=== PATIENT | male | born 1960 | race Caucasian/White ===

== ENCOUNTER 2019-01-11 13:08 | Outpatient (CLI) | payer MEDICARE, MEDICAID ==
--- NOTE | 2019-01-13 15:54 | ULT ---
LOWER EXTREMITY ARTERIAL EVALUATION USING DOPPLER WAVEFORM ANALYSIS AND SEGMENTAL LIMB PRESSURES: 01/11/10 Waveforms in the lower extremities are for the most part normal with an ankle-arm index of 1.26 on th e right and 1.01 on the left. Normal toe-brachial index bilaterally. This study demonstrates mild peripheral vascular disease in the left leg but would not be consistent with a history of unable to walk.
== END 2019-01-11 13:09 | disposition home or self-care (01) ==
LOC: ULT 13:08
PROVIDERS: ATTEND Family Medicine
DX: I73.9 Peripheral vascular disease, unspecified (principal)
CPT/HCPCS: 36415; 83036; 93922

== ENCOUNTER 2019-03-15 09:48 | Outpatient (CLI) | payer MEDICARE, MEDICAID ==
--- NOTE | 2019-03-15 11:30 | ULT ---
ULTRASOUND RETROPERITONEUM COMPLETE: (RENAL) DATE: 03/15/2019 HISTORY: 58-year-old male with chronic cystitis and hematuria. FINDINGS: Right kidney measures 10.5 x 5 x 5.5 cm. No hydronephrosis. No moderate sized or large solid or cystic renal lesion identified. Patient just voided prior to ultrasound. Bladder volume is 45 mL. Left kidney not visualized. IMPRESSION: 1) left kidney not visualized. 2) no hydronephrosis of right kidney. 3) patient voided just prior to exam.
== END 2019-03-15 09:49 | disposition home or self-care (01) ==
LOC: ULT 09:48
PROVIDERS: ATTEND Family Medicine
DX: N30.21 Other chronic cystitis with hematuria (principal)
CPT/HCPCS: 76770

== ENCOUNTER 2019-04-27 10:39 | Outpatient (CLI) | payer MEDICARE, MEDICAID ==
[2019-04-27 11:18] LABS: Estimated GFR-MDRD - POC Greater than 90
[2019-04-27] MEDS ORDERED: Iopamidol 370 76% 100 ML VIAL ONE (13:56)
--- NOTE | 2019-04-27 14:54 | CT ---
CT ABDOMEN AND PELVIS WITH AND WITHOUT IV CONTRAST: 04/27/19 COMPARISON: None. HISTORY: Gross hematuria. FINDINGS: There are multiple nonobstructing left renal calculi seen. Largest calculus in the mid portion left kidney measures 7 mm x 3 mm. There are a couple of nonobstructing renal calculi in the right kidney m easuring approximately 2 mm. No ureteral calculus is seen bilaterally, and there is no evidence of hy dronephrosis. Subcentimeter too small to characterize hypodense lesions are seen in each kidney, more numerous on t he left. No enhancing renal mass is identified. Delayed images demonstrate no definitive persistent d elay effect within either renal collecting system or within the segmentally opacified bilateral urete rs. There is mild atelectasis at each lung base. The liver demonstrates diminished attenuation related to diffuse fatty infiltration. Multiple gallbladder calculi are seen. The spleen, pancreas, and right adrenal gland demonstrate a normal CT appearance. There is a fat dens ity lesion involving the left adrenal gland measuring 3.2 cm compatible with a myelolipoma. The urinary bladder is incompletely distended but grossly normal in appearance. The prostate gland is heterogeneous in appearance with prostate calcification seen. The prostate gland is mildly enlarged in transverse dimensions measuring 5.1 cm. Minimal vascular calcifications are seen in the abdominal aorta and iliac arteries. The abdominal aor ta is normal in caliber. Loops of small bowel are normal in caliber. Moderate amount of retained fecal material is seen in the rectum. The sigmoid colon is redundant. A few scattered colonic diverticula are seen. There is motio n in the right lower quadrant and the appendix is not visualized. However, there are no secondary sig ns to suggest appendicitis. Multilevel degenerative changes are seen in the visualized thoracic as well as lumbar spine. Degenera tive changes are also seen involving each sacroiliac joint, and there is bilateral hip osteoarthriti s. IMPRESSION: 1. Nonobstructing bilateral renal calculi. 2. Fatty infiltration of the liver. 3. Cholelithiasis. 4. Left adrenal myelolipoma. 5. Colonic diverticulosis. 6. Mild enlargement of the prostate gland. POS: CET
== END 2019-04-27 10:40 | disposition home or self-care (01) ==
LOC: CT 10:39
PROVIDERS: ATTEND Urology
DX: R31.0 Gross hematuria (principal); N20.0 Calculus of kidney; K76.0 Fatty (change of) liver, not elsewhere classified; K80.20 Calculus of gallbladder without cholecystitis without obstruction; K57.30 Diverticulosis of large intestine without perforation or abscess without bleeding; N40.0 Benign prostatic hyperplasia without lower urinary tract symptoms; D17.79 Benign lipomatous neoplasm of other sites
CPT/HCPCS: 74178; 82565; Q9967

== ENCOUNTER 2019-05-16 07:14 | Day surgery (SDC) | payer MEDICARE, MEDICAID ==
[2019-05-13 11:33] VITALS: BMI 38.0
[2019-05-16 08:15] LABS: #Basophils 0.1 thou/uL (0.0-0.2); #Eosinphils 0.2 thou/uL (0.0-0.7); #Lymphocytes 1.8 thou/uL (1.20-3.40); #Monocytes 0.7 thou/uL (0.11-0.59); #Neutrophils 6.2 thou/uL (1.40-6.50); %Basophils 0.8 % (0.0-1.0); %Eosinophils 2.4 % (0.0-10.0); %Lymphocytes 19.8 % (21.0-51.0); %Monocytes 8.2 % (0.0-10.0); %Neutrophils 68.9 % (42.0-75.0); Hemoglobin 15.1 g/dL (14.0-18.0); Mean Corpuscular HGB CONC 32.4 g/dL (32.0-36.0); Mean Corpuscular Volume 86.5 fL (78.0-98.0); Mean Platelet Volume 7.8 fL (7.4-10.4); Platelet Count 308 thou/uL (130-400); RBC Distribution Width 14.1 % (11.5-14.5); Red Blood Cell (RBC) Count 5.38 mill/uL (4.70-6.10)
[2019-05-16 08:27] LABS: PTT 32.6 SEC (22.9-36.1); Prothrombin Time 12.9 SEC (12.0-14.7)
[2019-05-16 08:35] LABS: Anion Gap 14 mmol/L (10-20); BUN (Urea Nitrogen) 15 mg/dL (8.4-25.7); Calc. Creatinine Clearance 158 mL/min (70-130); Calcium 9.1 mg/dL (7.8-10.44); Carbon Dioxide 22 mmol/L (22-29); Chloride 110 mmol/L (98-107); Estimated GFR-MDRD Greater than 90; Glucose 106 mg/dL (70-105); Potassium 4.3 mmol/L (3.5-5.1); Sodium 142 mmol/L (136-145)
[2019-05-16] MEDS ORDERED: Iothalamate Meglumine 60% 50 ML VIAL FS ONE (08:50)
[2019-05-16] MEDS ORDERED: Fentanyl 100 MCG/2 ML VIAL ONE (09:00)
--- NOTE | 2019-05-16 10:51 | RAD ---
Retrograde pyelogram: 05/16/2019 COMPARISON: None HISTORY: Gross hematuria FINDINGS: 12 images from bilateral retrograde pyelogram provided. Provided imaging demonstrates no di screte filling defect within the within the opacified portions of the renal collecting system/ureter bilaterally. IMPRESSION: Grossly unremarkable bilateral retrograde pyelogram.
--- NOTE | 2019-05-16 12:13 | OP ---
DATE OF PROCEDURE: 05/16/2019 PREOPERATIVE DIAGNOSIS: Hematuria. POSTOPERATIVE DIAGNOSES: Hematuria and bladder tumors. PROCEDURES PERFORMED: Cysto, bilateral retrogrades, transurethral resection of bladder tumour, laser bladder tumors, and intravesical instillation of chemotherapeutic agent mitomycin-C 40 mg and 40 mL normal saline, and digital rectal exam. ANESTHESIA: General. ESTIMATED BLOOD LOSS: Less than 50 mL. FINDINGS: There is no evidence of stricture disease. There was moderate BPH. There was kind of a flat papillary-appearing tumor on the trigone around the left ureteral orifice and on the left posterior wall and some of it up around the bladder neck. We resected the tumors of this area that was around the left ureteral orifice and on the trigone and on the left posterior wall. Then, we used the holmium laser to basically destroy the mucosa of these other abnormal areas. Retrograde studies were done that did not show any persistent filling defects for obstruction or hydronephrosis and we did not resect the ureteral orifice, so we did not place the stent. Digital rectal exam revealed normal tone. No rectal lesions and prostate that was mild to moderately enlarged but it was smooth without nodularity. DESCRIPTION OF PROCEDURE: Obtained written and verbal consent from the patient's family, after receiving IV antibiotics, he was taken to the operating suite. He was placed in the supine position on the treatment table. PlexiPulses were placed on his lower extremities and turned on. He was given a general anesthetic and oral obturator intubation, placed in the dorsal lithotomy position. Cystoscopy was performed with a 22-Australian sheath. This was well lubricated and passed under direct vision through the male urethra, through the prostatic urethra and into the bladder. The bladder was filled and emptied number of times and exam of both the 30-degree and 70-degree lens with the findings above. We then went ahead and gently dilated with [place] sounds up to 28-Australian and then passed a 24-Australian resectoscope sheath with visual obturator using a 30-degree lens through the male urethra and into the urinary bladder. An CounterTack resectoscope with Gyrus generator and loop, a 30-degree lens and video camera and monitor were used. We resected the tumor and the abnormal mucosa around the left ureteral orifice, but did not resect the orifice. We then resected this same type of tissue that was along the trigone and then along the left posterior wall. We then cauterized all these areas and then used the holmium laser to destroy the other areas of abnormal mucosa that were adjacent to these. Before doing any resection, we did bilateral retrogrades and these were done with a 5-Australian Pollack catheter that was flushed with contrast. [employer] KUB was taken with the fluoroscopy unit and the right side was done by injecting about 12 mL of contrast slowly up the right ureteral orifice filling out the ureter and upper collecting system and then doing the same on the right and then taking drainage films. We also repeated the retrograde study on the left side after the procedure was completed to be sure that this ureter was draining well in which it was. At the end of the procedure, Rod catheter was placed. He was taken out of the dorsal lithotomy position. The urine was clear. He had 40 mg of mitomycin-C and 40 mL of normal saline passed per the catheter and the catheter plugged and it stayed plugged for 30 minutes and he was taken to the recovery room after he was awakened and extubated. Job ID: [id number]
[2019-05-16] MEDS ORDERED: ePHEDrine 50 MG/ML VIAL ONE (14:55)
[2019-05-16] MEDS ORDERED: Lidocaine 1% PF 5 ML VIAL ONE (14:55)
[2019-05-16] MEDS ORDERED: PHENYLEPHRINE-NS 100 MCG/ML 10 ML SYRINGE ONE (14:55)
[2019-05-16] MEDS ORDERED: PROPOFOL 200 MG/20 ML VIAL ONE (14:55)
--- NOTE | 2019-05-19 05:42 | PQF ---
[facility] POST DISCHARGE CLINICAL DOCUMENTATION IMPROVEMENT CLARIFICATION FORM l Todays Date: 05/19/19 l Patients Name YESENIA DAWKINS l l Admit Date 05/16/19 l Disch Date 05/16/19 [employer]ing Machine Operator Name Max Montgomery Email: Cell: [phone] To be completed by [employer] Operator: Present Clinical Indicators - Signs / Symptoms Results and Location in Medical Record [ ] Documentation of: [ ] [ ] Documentation of: [ ] [ ] Documentation of: [ ] [ ] Documentation of: [ ] [ ] Risks [ ] [ ] [ ] Treatment [ ] Bladder carcinoma Query for size of laser fulgurated bladder tumors. [ ] [ ] To be completed by Physician: ANNA BAEZ The documentation in this patients record requires clarification to ensure coding compliance and accuracy. Check the appropriate box and include in your discharge summary. [ ] [ ] [ ] [ ] Please check this box if this does not apply to this patient [ ] Unable to determine [ ] Other diagnosis: Review the following information and exercise your independent professional judgment in responding to the clarification. Based upon the clinical findings, risk factors, and treatment, please clarify if you are treating one of the above probable or suspected diagnoses. Physician Signature: Date Time MTDD
== END 2019-05-16 13:35 | disposition home or self-care (01) ==
LOC: SDC 07:14
PROVIDERS: ATTEND Urology
DX: C67.4 Malignant neoplasm of posterior wall of bladder (principal); C67.5 Malignant neoplasm of bladder neck; C67.6 Malignant neoplasm of ureteric orifice; N40.0 Benign prostatic hyperplasia without lower urinary tract symptoms; F32.9 Major depressive disorder, single episode, unspecified; I10 Essential (primary) hypertension; K21.9 Gastro-esophageal reflux disease without esophagitis; E11.9 Type 2 diabetes mellitus without complications; E66.9 Obesity, unspecified; Z68.38 Body mass index [BMI] 38.0-38.9, adult; Z79.82 Long term (current) use of aspirin; Z79.84 Long term (current) use of oral hypoglycemic drugs; Z79.899 Other long term (current) drug therapy
CPT/HCPCS: 74420; 80048; 85025; 85610; 85730; 88307; C1758; J9280; 36415; A4216; J0690; J2001; J2704; J3010; J3490

== ENCOUNTER 2019-08-29 05:50 | Day surgery (SDC) | payer MEDICARE, MEDICAID ==
[2019-08-26 15:32] VITALS: BMI 37.8
[2019-08-29] MEDS ORDERED: Iothalamate Meglumine 60% 50 ML VIAL FS ONE (06:47)
[2019-08-29] MEDS ORDERED: Lidocaine 2% Jelly 5 ML TUBE ONE (06:47)
[2019-08-29 06:58] LABS: #Basophils 0.1 thou/uL (0.0-0.2); #Eosinphils 0.3 thou/uL (0.0-0.7); #Lymphocytes 1.8 thou/uL (1.20-3.40); #Monocytes 0.7 thou/uL (0.11-0.59); #Neutrophils 5.4 thou/uL (1.40-6.50); %Basophils 0.8 % (0.0-1.0); %Eosinophils 3.1 % (0.0-10.0); %Lymphocytes 21.9 % (21.0-51.0); %Monocytes 8.2 % (0.0-10.0); Hemoglobin 14.9 g/dL (14.0-18.0); Mean Corpuscular HGB CONC 32.4 g/dL (32.0-36.0); Mean Corpuscular Hemoglobin 28.5 pg (27.0-31.0); Mean Corpuscular Volume 87.9 fL (78.0-98.0); Mean Platelet Volume 7.8 fL (7.4-10.4); Platelet Count 321 thou/uL (130-400); RBC Distribution Width 13.8 % (11.5-14.5); Red Blood Cell (RBC) Count 5.24 mill/uL (4.70-6.10); White Blood Cell (WBC) Count 8.2 thou/uL (4.8-10.8)
[2019-08-29] MEDS ORDERED: Fentanyl 100 MCG/2 ML VIAL ONE (07:00)
[2019-08-29 07:04] LABS: INR-International Normal Ratio 0.9; PTT 32.5 SEC (22.9-36.1); Prothrombin Time 12.4 SEC (12.0-14.7)
[2019-08-29 07:12] LABS: Anion Gap 15 mmol/L (10-20); BUN (Urea Nitrogen) 17 mg/dL (8.4-25.7); Calc. Creatinine Clearance 127 mL/min (70-130); Calcium 8.7 mg/dL (7.8-10.44); Carbon Dioxide 20 mmol/L (23-31); Chloride 110 mmol/L (98-107); Estimated GFR-MDRD 84; Glucose 129 mg/dL (80-115); Potassium 4.1 mmol/L (3.5-5.1); Sodium 141 mmol/L (136-145)
--- NOTE | 2019-08-29 09:33 | RAD ---
XR IVP Retrograde HISTORY: Hematuria. Renal calculi. COMPARISON: CT examination of 04/27/2019 and a retrograde study of 05/16/2019. FINDINGS: A series of images show contrast injection into both the right and left collecting systems. No filling defects are demonstrated. No obstruction. Respiratory motion is present on this exam. IMPRESSION: Grossly unremarkable bilateral retrograde pyelogram.
[2019-08-29] MEDS ORDERED: traMADol HCl 50 MG TAB ONE (11:01)
--- NOTE | 2019-08-29 14:12 | OP ---
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 POSTOPERATIVE DIAGNOSIS: Probable recurrent tumor. PROCEDURES PERFORMED: 1. Cystoscopy. 2. Bilateral retrograde. 3. Transurethral resection of bladder tumor. ANESTHETIC: General. ESTIMATED BLOOD LOSS: Probably 50 to maybe 70 mL. DRAINS PLACED: A 4.8 x 26 cm left double-J stent and a 20-Estonian Rod catheter. FINDINGS: He had a small area that appeared to probably be tumor just medial to the left ureteral orifice. He had some abnormal mucosa at prior resection site on the left wall. He had what appears to probably be papillary tumor just at the junction of the bladder neck in the anterior bladder wall abutting the prostate. This was probably about 2 cm in size and was difficult to see the resect of its location, but I felt like we got all of it removed. DESCRIPTION OF PROCEDURE: After obtaining written and verbal consent from his family and after receiving IV antibiotics, he was taken to the operating suite. He was placed in the supine position on the treatment table. PlexiPulses were placed on his lower extremities and turned on. He was given a general anesthetic and oral obturator intubation. He was placed in the dorsal lithotomy position and sterilely prepped and draped for cystoscopy. C-arm was brought in for imaging. Cystoscopy was performed with a 22-Estonian sheath. This was well lubricated and passed under direct vision through the male urethra into the bladder with aid of a 30-degree lens and video camera and monitor. The bladder was filled and emptied a number of times as this was examined both with the 30 and the 70-degree lens. Using the 30-degree lens, we brought in a 5-Estonian Pollack catheter, flushed with contrast, and did the retrograde study of the right and the left ureter and collecting system by injecting contrast 1st on the right side about 15 mL as we used fluoroscopic imaging to look at the entire ureter and upper collecting system. The same was done on the left. Both sides appeared to drain well. No persistent filling defects were noted. We then went ahead and removed the instruments gently, dilated with [place] sounds, and passed a 24-Estonian resectoscope sheath with visual obturator into the urinary bladder, removing the obturator. We placed the resectoscope with the Gyrus generator and Gyrus bladder loop and a 30-degree lens. We initially resected the tumor by the left ureteral orifice, sent off the area of abnormal mucosa and a prior resection site on the left wall, then lastly the tissue by the anterior bladder neck. We had to Ellik this area out. Once this was done, we obtained hemostasis with the electrocautery unit. We removed these instruments and replaced the 22-Estonian sheath with a 30-degree lens and used this to identify the left ureteral orifice because we had resected adjacent to it. I fed a guidewire up that side and then placed a stent up that side. I will leave that in for a few weeks to be sure he does not obstruct from the proximity of the resection. At this point, the instruments were removed. Rod catheter was placed with aid of a catheter guide, about 20 mL placed in the balloon. It was hand irrigated, it was clear. He was taken out of the dorsal lithotomy position. He was awakened and extubated and taken by stretcher to the recovery room. Job ID: [id number]
== END 2019-08-29 12:05 ==
LOC: SDC 05:50
PROVIDERS: ATTEND Urology
PROC: 0TBB8ZX Excision of Bladder, Via Natural or Artificial Opening Endoscopic, Diagnostic (ICD-10-PCS; principal; 2019-08-29)
PROC: 0T778DZ Dilation of Left Ureter with Intraluminal Device, Via Natural or Artificial Opening Endoscopic (ICD-10-PCS; 2019-08-29)
DX: C67.5 Malignant neoplasm of bladder neck (principal); N30.20 Other chronic cystitis without hematuria; Z79.82 Long term (current) use of aspirin; Z79.84 Long term (current) use of oral hypoglycemic drugs; Z79.899 Other long term (current) drug therapy
CPT/HCPCS: 52234; 52332; 74420; 80048; 85025; 85610; 85730; 88305; 88307; C1758; 36415; J0690; J3010

== ENCOUNTER 2019-10-03 06:08 | Day surgery (SDC) | payer MEDICARE, MEDICAID ==
[2019-10-03] MEDS ORDERED: Fentanyl 100 MCG/2 ML VIAL ONE (06:22)
[2019-10-03 06:49] LABS: #Eosinphils 0.4 thou/uL (0.0-0.7); #Lymphocytes 1.8 thou/uL (1.20-3.40); #Monocytes 0.6 thou/uL (0.11-0.59); %Basophils 0.5 % (0.0-1.0); %Eosinophils 5.4 % (0.0-10.0); %Lymphocytes 23.3 % (21.0-51.0); %Monocytes 7.4 % (0.0-10.0); %Neutrophils 63.4 % (42.0-75.0); Hemoglobin 14.7 g/dL (14.0-18.0); Mean Corpuscular HGB CONC 31.9 g/dL (32.0-36.0); Mean Corpuscular Hemoglobin 27.6 pg (27.0-31.0); Mean Corpuscular Volume 86.7 fL (78.0-98.0); Mean Platelet Volume 8.8 fL (7.4-10.4); Platelet Count 315 thou/uL (130-400); RBC Distribution Width 13.7 % (11.5-14.5); Red Blood Cell (RBC) Count 5.31 mill/uL (4.70-6.10); White Blood Cell (WBC) Count 7.8 thou/uL (4.8-10.8)
[2019-10-03 06:59] LABS: INR-International Normal Ratio 0.9; Prothrombin Time 12.3 SEC (12.0-14.7)
[2019-10-03 07:00] LABS: PTT 33.6 SEC (22.9-36.1)
[2019-10-03] MEDS ORDERED: Iothalamate Meglumine 60% 50 ML VIAL FS ONE (07:04)
[2019-10-03] MEDS ORDERED: cefTRIAXone\\ROCEPHIN 2 GM VIAL ONE (07:13)
[2019-10-03] MEDS ORDERED: Sodium Chloride 0.9% 100 ML ONE (07:13)
[2019-10-03 07:18] LABS: Anion Gap 14 mmol/L (10-20); BUN (Urea Nitrogen) 15 mg/dL (8.4-25.7); Calc. Creatinine Clearance 0 mL/min (70-130); Calcium 8.9 mg/dL (7.8-10.44); Carbon Dioxide 23 mmol/L (23-31); Chloride 109 mmol/L (98-107); Estimated GFR-MDRD 79; Glucose 113 mg/dL (80-115); Potassium 4.8 mmol/L (3.5-5.1); Sodium 141 mmol/L (136-145)
[2019-10-03] MEDS ORDERED: niCARdipine 25 MG/10 ML VIAL ONE (07:20)
--- NOTE | 2019-10-03 09:06 | RAD ---
RETROGRADE IVP: HISTORY: Stent placement. FINDINGS: Four intraprocedure images demonstrate a left ureteral stent. Retrograde opacification of the intrar enal and extrarenal collecting system does not demonstrate significant opacification. The last image does not demonstrate replacement of the stent. IMPRESSION: Intraprocedure fluoroscopy as above. POS: C
[2019-10-03] MEDS ORDERED: Ondansetron PF 4 MG/2 ML Vial ONE (10:27)
[2019-10-03] MEDS ORDERED: ePHEDrine/0.9% NaCl/PF SYRINGE 50 mg/10 ml ONE (10:27)
[2019-10-03] MEDS ORDERED: PROPOFOL 200 MG/20 ML VIAL ONE (10:27)
[2019-10-03] MEDS ORDERED: Lidocaine 1% PF 5 ML VIAL ONE (10:27)
[2019-10-03] MEDS ORDERED: PHENYLEPHRINE-NS 100 MCG/ML 10 ML SYRINGE ONE (10:27)
--- NOTE | 2019-10-03 14:40 | OP ---
DATE OF PROCEDURE: 10/03/2019 PREOPERATIVE DIAGNOSIS: Left ureteral stent and history of transitional cell carcinoma. POSTOPERATIVE DIAGNOSIS: Left ureteral stent and history of transitional cell carcinoma. PROCEDURES PERFORMED: Cysto, removal of left stent left retrograde, entrance through the resection of the tumor site on the anterior wall at the junction of the bladder neck. DESCRIPTION OF PROCEDURE: Obtained written and verbal consent from the patient's sister and after receiving IV antibiotics, he was taken to the operating suite. He was placed in the supine position on the treatment table. PlexiPulse's were placed on his lower extremities and turned on. He was given a general anesthetic and oral obturator intubation, placed in the dorsal lithotomy position and sterilely prepped and draped. Cystoscopy was performed with a 22-Libyan sheath. This was well lubricated and passed under direct vision through the male urethra into the urinary bladder with aid of a 30-degree lens and video camera and monitor. The bladder was filled and emptied number of times. The distal end of double-J stent was grasped. It was brought out through the urethral meatus and completely removed in its entirety. A 5-Libyan Pollack catheter was flushed with contrast and placed into the left ureteral orifice and contrast was injected about 15 mL in a retrograde manner. There was no evidence of filling defect or hydronephrosis or obstruction and the contrast all easily effluxed out the left ureter. We then went ahead and removed the instruments and passed under direct vision, a 24-Libyan resectoscope sheath with visual obturator through the male urethra into the bladder. Gyrus generator with a gyrus cutting loop and an Alves resectoscope and 30 degree lens and video camera and monitor were used. We had previously looked at the bladder with both the 30 and the 70-degree lens. We saw no other evidence of bladder tumors today, but because of a new finding of a bladder tumor on the anterior wall adjacent to the bladder neck, we resected this area, it was then cauterized for hemostasis. At this point, the Rod catheter was placed. Specimen was sent to pathology and the catheter was draining clear urine. He was taken out of dorsal lithotomy position, awakened, extubated, and taken by stretcher to the recovery room. Job ID: [id number]
--- NOTE | 2019-10-03 23:29 | EKG ---
Test Reason : PREOP Blood Pressure : / mmHG Vent. Rate : 067 BPM Atrial Rate : 067 BPM P-R Int : 192 ms QRS Dur : 094 ms QT Int : 432 ms P-R-T Axes : 016 -16 -17 degrees QTc Int : 456 ms Normal sinus rhythm Moderate voltage criteria for LVH, may be normal variant Borderline ECG When compared with ECG of 22-NOV-2016 07:12, Vent. rate has decreased BY 56 BPM QRS duration has increased Minimal criteria for Septal infarct are no longer Present ST no longer depressed in Anterior leads Confirmed by Bozena FUENTES ([id number]) on 10/03/2019 11:29:10 PM Referred By: LAKESHIA Confirmed By:Bozena FUENTES
--- NOTE | 2019-10-06 05:55 | PQF ---
[facility] POST DISCHARGE CLINICAL DOCUMENTATION IMPROVEMENT CLARIFICATION FORM l Todays Date: 10/06/19 l Patients Name YESENIA DAWKINS l l Admit Date 10/03/19 l Disch Date 10/03/19 Key Worker Name Max Montgomery Email: [email or web address] Cell: [phone] To be completed by Key Worker: Present Clinical Indicators - Signs / Symptoms Results and Location in Medical Record [ ] Documentation of: [ ] [ ] Documentation of: [ ] [ ] Documentation of: [ ] [ ] Documentation of: [ ] [ ] Risks [ ] [ ] [ ] Treatment [ ] Tumor of anterior bladder wall Query for size of resected bladder tumor. [ ] [ ] To be completed by Physician: ANNA BAEZ The documentation in this patients record requires clarification to ensure coding compliance and accuracy. Check the appropriate box and include in your discharge summary. [ ] [ ] [ ] [ ] Please check this box if this does not apply to this patient [ ] Unable to determine [ ] Other diagnosis: Review the following information and exercise your independent professional judgment in responding to the clarification. Based upon the clinical findings, risk factors, and treatment, please clarify if you are treating one of the above probable or suspected diagnoses. Physician Signature: Date Time MTDD
== END 2019-10-03 10:45 | disposition home or self-care (01) ==
LOC: SDC 06:08
PROVIDERS: ATTEND Urology
DX: N30.00 Acute cystitis without hematuria (principal); N30.20 Other chronic cystitis without hematuria; E11.9 Type 2 diabetes mellitus without complications; I10 Essential (primary) hypertension; Z85.51 Personal history of malignant neoplasm of bladder; Z79.84 Long term (current) use of oral hypoglycemic drugs; Z79.82 Long term (current) use of aspirin; Z79.899 Other long term (current) drug therapy; Z91.013 Allergy to seafood
CPT/HCPCS: 74420; 80048; 85025; 85610; 85730; 88307; 93005; C1758; 93010; J0696; J2001; J2405; J2704; J3010; J3490

== ENCOUNTER 2020-02-14 07:26 | Outpatient (CLI) | payer MEDICARE, MEDICAID ==
[2020-02-14] MEDS ORDERED: Iopamidol-370 76% 500 ML 1 ML ONE (09:13)
--- NOTE | 2020-02-14 14:03 | CT ---
CTA OF THE ABDOMEN AND PELVIS WITH BILATERAL LOWER EXREMITY RUNOFF: 02/14/20 INDICATION: History of peripheral vascular disease. COMPARISON: Prior CT of the abdomen and pelvis dated 04/27/19. TECHNIQUE: Multiple CTA images were obtained of the abdomen and pelvis with bilateral lower extremity runoff uti lizing IV contrast, 3D reformatted imaging, axial, coronal and sagittal reformatted imaging were cons tructed from the raw data. Motion artifact during the examination slightly limit image detail. FINDINGS: No focal hepatic lesion is evident. There is stable cholelithiasis. There is a stable left adrenal my elolipoma. There is bilateral nephrolithiasis without evidence of hydronephrosis. Spleen appears with in normal limits. No free fluid or enlarged lymph nodes are evident. The visualized pancreas is unrem arkable appearing. There is a moderate amount of retained stool within the colon. There is a normal appendix within the right lower quadrant. The prostate is enlarged measuring 5.2 cm. Small bowel is of normal caliber. Th ere is scattered degenerative and osteoarthritic change. No definite acute osseous abnormality is brijesh dent. There is mild atherosclerotic irregularity involving the abdominal aorta. The celiac, SMA, and renal arteries are patent. The LUIS ANTONIO is patent. Common iliacs are patent. External iliacs are patent. Right a nd left common femoral arteries are patent. The superficial femoral arteries are patent. The poplitea l arteries are patent. Trifurcations patent. There is three vessel runoff to the level of the ankle b ilaterally. IMPRESSION: 1. No hemodynamically significant stenosis demonstrated. 2. Cholelithiasis. 3. Bilateral nephrolithiasis. 4. Left adrenal myelolipoma. 5. Moderate amount of retained stool within colon. 6. Prostate enlargement. POS: HYACINTH
== END 2020-02-14 07:27 | disposition home or self-care (01) ==
LOC: BICCT 07:26
PROVIDERS: ATTEND Family Medicine
DX: I73.9 Peripheral vascular disease, unspecified (principal); K80.20 Calculus of gallbladder without cholecystitis without obstruction; N20.0 Calculus of kidney; K59.00 Constipation, unspecified; N40.0 Benign prostatic hyperplasia without lower urinary tract symptoms; D17.79 Benign lipomatous neoplasm of other sites
CPT/HCPCS: 75635; Q9967

== ENCOUNTER 2020-04-02 06:47 | Day surgery (SDC) | payer MEDICARE, MEDICAID ==
[2020-04-02] MEDS ORDERED: Levofloxacin 500 mg/D5W 100 ml Premix Bag ONE (07:54)
[2020-04-02] MEDS ORDERED: Fentanyl 100 MCG/2 ML VIAL ONE (08:59)
[2020-04-02] MEDS ORDERED: Iothalamate Meglumine 60% 50 ML VIAL FS ONE (09:44)
[2020-04-02] MEDS ORDERED: Ondansetron PF 4 MG/2 ML Vial ONE (09:53)
[2020-04-02] MEDS ORDERED: EPHEDRINE 25 MG/5 ML SYRINGE ONE (09:53)
[2020-04-02] MEDS ORDERED: PROPOFOL 200 MG/20 ML VIAL ONE (09:53)
[2020-04-02] MEDS ORDERED: Dexamethasone 20 MG/5 ML VIAL ONE (09:53)
[2020-04-02] MEDS ORDERED: Lidocaine 1% PF 5 ML VIAL ONE (09:53)
--- NOTE | 2020-04-02 10:56 | OP ---
DATE OF PROCEDURE: 04/02/2020 PREOPERATIVE DIAGNOSIS: History of bladder cancer. POSTOPERATIVE DIAGNOSIS: History of bladder cancer. PROCEDURES PERFORMED: Cystoscopy, bilateral retrogrades, and bladder biopsy. ANESTHESIA: General. ESTIMATED BLOOD LOSS: Minimal. DRAINS PLACED: None. FINDINGS: There was no evidence of stricture disease and a large prostate was noted. There was no evidence of recurrent bladder tumor along the course of the prostatic urethra or throughout the bladder. Retrograde studies were done bilaterally. There was no evidence of any persisting or significant filling defect, point of obstruction or abnormality. The left ureteral orifice had been resected because of his initial procedure, but this looked like it was healed and it certainly drained well on that side. DESCRIPTION OF PROCEDURE: After obtaining written and verbal consent from the patient and his family and after receiving IV antibiotics, he was taken to the operating suite. He was placed in a supine position on the treatment table. PlexiPulses were placed on his lower extremities and turned on. He was given a general anesthetic and oral obturator intubation. He was placed in the dorsal lithotomy position. He was sterilely prepped and draped. Cystoscopy was performed with a 22-Citizen [place] sheath. This was well lubricated, passed under direct vision through the male urethra and into the urinary bladder with aid of a 30-degree lens and a video camera and monitor. The bladder was filled and emptied a number of times and examined with both the 30- and the 70-degree lens. He was then centered under the fluoro unit and a fisher trawl net film was taken. A 5-Citizen [place] catheter was flushed with contrast. It was advanced into the left ureteral orifice 2 to 3 cm and contrast was injected in a retrograde manner. Images were taken as it filled and emptied. The right side was done in a similar manner. At this point, drainage films were to be done. We did bladder biopsies of the prior tumor site and then used a Bugbee to cauterize the sites. We repeated fluoroscopic exam and both ureters had drained well. The bladder was drained. The instruments were removed. He was taken out of the dorsal lithotomy position, awakened, extubated, and taken by stretcher to recovery room. Job ID: [id number]
--- NOTE | 2020-04-02 11:36 | RAD ---
Retrograde pyelogram 14 views 04/02/2020 HISTORY: 59-year-old male with bilateral nephrolithiasis. FINDINGS: Injection into bilateral distal ureters demonstrate no hydronephrosis. No filling defects in the uret ers or renal collecting systems. The bilateral mid-distal ureters through the levels of upper through mid sacrum have mild dilation, especially the left, but good drainage. There is no ureteral s tent. IMPRESSION: Negative
== END 2020-04-02 12:24 ==
LOC: SDC 06:47
PROVIDERS: ATTEND Urology
PROC: 0TBB8ZX Excision of Bladder, Via Natural or Artificial Opening Endoscopic, Diagnostic (ICD-10-PCS; principal; 2020-04-02)
PROC: BT14ZZZ Fluoroscopy of Kidneys, Ureters and Bladder (ICD-10-PCS; 2020-04-02)
DX: N30.00 Acute cystitis without hematuria (principal); N30.20 Other chronic cystitis without hematuria; N20.0 Calculus of kidney; E11.9 Type 2 diabetes mellitus without complications; J44.9 Chronic obstructive pulmonary disease, unspecified; I10 Essential (primary) hypertension; K21.9 Gastro-esophageal reflux disease without esophagitis; Z85.51 Personal history of malignant neoplasm of bladder; Z79.82 Long term (current) use of aspirin; Z79.84 Long term (current) use of oral hypoglycemic drugs; Z79.899 Other long term (current) drug therapy
CPT/HCPCS: 74420; 88305; J1100; J1956; J2405; J2704; J3010

== ENCOUNTER 2020-06-05 12:01 | Emergency (ER) | payer OTHER ==
[2020-06-05 12:45] LABS: #Basophils 0.1 thou/uL (0.0-0.2); #Eosinphils 0.3 thou/uL (0.0-0.7); #Monocytes 0.8 thou/uL (0.11-0.59); #Neutrophils 5.9 thou/uL (1.40-6.50); %Eosinophils 3.2 % (0.0-10.0); %Lymphocytes 22.3 % (21.0-51.0); %Monocytes 8.2 % (0.0-10.0); %Neutrophils 65.3 % (42.0-75.0); Mean Corpuscular HGB CONC 31.7 g/dL (32.0-36.0); Mean Corpuscular Hemoglobin 27.9 pg (27.0-31.0); Mean Corpuscular Volume 88.1 fL (78.0-98.0); Mean Platelet Volume 8.4 fL (7.4-10.4); Platelet Count 319 thou/uL (130-400); Red Blood Cell (RBC) Count 5.35 mill/uL (4.70-6.10); White Blood Cell (WBC) Count 9.1 thou/uL (4.8-10.8)
[2020-06-05 13:05] LABS: ALT (SGPT) 15 U/L (8-55); AST (SGOT) 16 U/L (5-34); Albumin 3.9 g/dL (3.4-4.8); Alcohol Less than 10 mg/dL (Less than 10); Alkaline Phosphatase 120 U/L (40-110); Anion Gap 17 mmol/L (10-20); BUN (Urea Nitrogen) 18 mg/dL (8.4-25.7); Bilirubin, Total 0.2 mg/dL (0.2-1.2); CK (CPK) 406 U/L (30-200); Calc. Creatinine Clearance 0 mL/min (70-130); Calcium 8.8 mg/dL (7.8-10.44); Carbon Dioxide 21 mmol/L (23-31); Chloride 109 mmol/L (98-107); Estimated GFR-MDRD Greater than 90; Globulin 2.8 g/dL (2.4-3.5); Glucose 105 mg/dL (80-115); Potassium 4.1 mmol/L (3.5-5.1); Protein, Total 6.7 g/dL (5.8-8.1); Sodium 143 mmol/L (136-145)
[2020-06-05 13:06] LABS: Acetaminophen Less than 6.0 mcg/mL (10.0-30.0); Alcohol Less than 10 mg/dL (Less than 10); Salicylate Less than 8.0 mg/dL (15.0-30.0)
[2020-06-05 13:42] LABS: Bacteria/HPF 3+ HPF (None Seen); Bilirubin Negative (Negative); Blood, Urine Negative (Negative); Clarity Clear (Clear); Glucose, Urine (Dipstick) Normal (Negative); Ketone, Urine Negative (Negative); Leukocyte 250 Leu/uL (Negative); Nitrite Negative (Negative); Protein, Urine (Dipstick) 10 mg/dL (Neg-Trace); RBC/HPF 0-3 HPF (0-3); Squamous Epithelial 0-3 HPF (0-3); Urobilinogen Normal mg/dL (Less than 2); WBC/HPF 21-50 HPF (0-3)
[2020-06-05 13:57] LABS: Amphetamine Not Detected (NotDetected); Barbiturates Screen Not Detected (NotDetected); Benzodiazepine Screen Not Detected (NotDetected); Cocaine Metabolite Screen Not Detected (NotDetected); Medtox Control Line Valid? VALID (VALID); Medtox Reader # READER 4; Methadone Not Detected (NotDetected); Methamphetamine Not Detected (NotDetected); Opiate Screen Not Detected (NotDetected); Oxycodone Screen Not Detected (NotDetected); Phencyclidine (PCP) Not Detected (NotDetected); THC/Cannabinoid Screen Not Detected (NotDetected); Tricyclic Screen Not Detected (NotDetected)
== END 2020-06-05 15:08 | disposition home or self-care (01) ==
LOC: ERS 12:01
DX: N39.0 Urinary tract infection, site not specified (principal); E78.5 Hyperlipidemia, unspecified; E78.00 Pure hypercholesterolemia, unspecified; I10 Essential (primary) hypertension; K21.9 Gastro-esophageal reflux disease without esophagitis; F32.9 Major depressive disorder, single episode, unspecified; F41.9 Anxiety disorder, unspecified; Z79.82 Long term (current) use of aspirin; Z79.84 Long term (current) use of oral hypoglycemic drugs; Z79.899 Other long term (current) drug therapy
CPT/HCPCS: 36415; 80053; 80306; 80307; 81003; 81015; 82550; 84443; 85025; 87077; 87086; 87186; 93005

== ENCOUNTER 2021-07-01 06:32 | Day surgery (SDC) | payer OTHER, MEDICARE, MEDICAID ==
[2021-06-28 11:12] VITALS: BMI 34.5
[2021-07-01] MEDS ORDERED: Fentanyl 100 MCG/2 ML VIAL ONE (06:46)
[2021-07-01] MEDS ORDERED: Levofloxacin 500 mg/D5W 100 ml Premix Bag ONE (07:21)
[2021-07-01] MEDS ORDERED: SUGAMMADEX SODIUM 200 MG/2 ML VIAL ONE (07:28)
[2021-07-01] MEDS ORDERED: Iothalamate Meglumine 60% 50 ML VIAL FS ONE (07:32)
[2021-07-01] MEDS ORDERED: PROPOFOL 200 MG/20 ML VIAL ONE (07:36)
[2021-07-01] MEDS ORDERED: Ondansetron PF 4 MG/2 ML Vial ONE (07:36)
[2021-07-01] MEDS ORDERED: Labetalol HCl 100 MG/20 ML VIAL ONE (07:36)
[2021-07-01] MEDS ORDERED: Dexamethasone 20 MG/5 ML VIAL ONE (07:36)
[2021-07-01] MEDS ORDERED: Rocuronium Bromide 10 MG/ML (10ML VIAL) ONE (07:36)
[2021-07-01] MEDS ORDERED: ePHEDrine 50 MG/ML VIAL ONE (07:36)
[2021-07-01] MEDS ORDERED: PHENYLEPHRINE-NS 100 MCG/ML 10 ML SYRINGE ONE (07:36)
[2021-07-01] MEDS ORDERED: Lidocaine 1% PF 5 ML VIAL ONE (07:36)
[2021-07-01] MEDS ORDERED: Ioversol 68 % 50 ML VIAL ONE (07:55)
[2021-07-01] MEDS ORDERED: HYDROcodone/Acetaminophen 5/325 mg Tablet ONE (10:29)
== END 2021-07-01 10:38 ==
LOC: SDC 06:32
PROVIDERS: ATTEND Urology
PROC: 0TBB8ZX Excision of Bladder, Via Natural or Artificial Opening Endoscopic, Diagnostic (ICD-10-PCS; principal; 2021-07-01)
DX: D30.3 Benign neoplasm of bladder (principal); N13.30 Unspecified hydronephrosis; I10 Essential (primary) hypertension; E78.5 Hyperlipidemia, unspecified; S06.9X9S Unspecified intracranial injury with loss of consciousness of unspecified duration, sequela; R41.89 Other symptoms and signs involving cognitive functions and awareness; G81.10 Spastic hemiplegia affecting unspecified side; R47.02 Dysphasia; R27.0 Ataxia, unspecified; E11.9 Type 2 diabetes mellitus without complications; K21.9 Gastro-esophageal reflux disease without esophagitis; Z66 Do not resuscitate; Z85.51 Personal history of malignant neoplasm of bladder; Z86.16 Personal history of COVID-19; Z87.440 Personal history of urinary (tract) infections; Z79.82 Long term (current) use of aspirin; Z79.84 Long term (current) use of oral hypoglycemic drugs; Z79.899 Other long term (current) drug therapy; Z91.013 Allergy to seafood; V89.2XXS Person injured in unspecified motor-vehicle accident, traffic, sequela
CPT/HCPCS: 74420; Q9961; 88305; J1100; J1956; J2405; J2704; J3010; J3490; Q9967

== ENCOUNTER 2022-03-27 13:01 | Outpatient (CLI) | payer MEDICARE, OTHER | END 2022-03-27 13:02 | disposition home or self-care (01) | LOC: RAD 13:01 | PROVIDERS: ATTEND Family Medicine | DX: M79.605 Pain in left leg (principal); R25.2 Cramp and spasm; M47.816 Spondylosis without myelopathy or radiculopathy, lumbar region; M25.78 Osteophyte, vertebrae; M48.16 Ankylosing hyperostosis [Forestier], lumbar region | CPT/HCPCS: 72100 ==

== ENCOUNTER 2025-04-23 08:59 | Inpatient (IN) | payer MEDICARE, MEDICAID ==
[2025-04-23 10:00] LABS: #Basophils 0.05 10x3/uL (0.0-0.2); #Eosinophils Less than 0.03 10x3/uL (0.0-0.7); #Monocytes 0.58 10x3/uL (0.11-0.59); #Neutrophils 14.06 10x3/uL (1.40-6.50); %Basophils 0.3 % (0.0-1.0); %Eosinophils 0.1 % (0.0-10.0); %Lymphocytes 5.7 % (21.0-51.0); %Monocytes 3.7 % (0.0-10.0); %Neutrophils 89.6 % (42.0-75.0); Hematocrit 45.3 % (42.0-52.0); Hemoglobin 14.1 g/dL (14.0-18.0); Mean Corpuscular Hemoglobin 25.9 pg (27.0-31.0); Mean Corpuscular Volume 83.1 fL (78.0-98.0); Platelet Count 403 10x3/uL (130-400); Red Blood Cell (RBC) Count 5.45 mill/uL (4.70-6.10); White Blood Cell (WBC) Count 15.68 10x3/uL (4.8-10.8)
[2025-04-23 10:10] LABS: ALT (SGPT) 13 U/L (Less than 45); AST (SGOT) 20 U/L (11-34); Albumin 3.8 g/dL (3.1-4.5); Alkaline Phosphatase 120 U/L (40-110); Anion Gap 18 mmol/L (10-20); BUN (Urea Nitrogen) 21 mg/dL (8.4-25.7); Bilirubin, Total 0.2 mg/dL (0.3-1.2); Calc. Creatinine Clearance 0 mL/min (70-130); Calcium 9.1 mg/dL (7.8-10.44); Carbon Dioxide 19 mmol/L (23-31); Chloride 109 mmol/L (98-107); Globulin 3.5 g/dL (2.4-3.5); Glucose 135 mg/dL (80-115); Lipase 34 U/L (8-78); Potassium 4.8 mmol/L (3.5-5.1); Sodium 141 mmol/L (136-145)
[2025-04-23 10:14] LABS: INR-International Normal Ratio 1.0; Prothrombin Time 13.4 sec (12.0-14.7)
[2025-04-23 10:15] LABS: PTT 34.0 sec (22.9-36.1)
[2025-04-23] MEDS ORDERED: Lidocaine 2% 6 ML (Jelly) SYR ONE (10:33)
[2025-04-23] MEDS ORDERED: cefTRIAXone (ROCEPHIN) 2 GM VIAL ONE (10:33)
[2025-04-23 11:18] LABS: Bacteria/HPF None Seen HPF (None Seen); CAUTI Indications for Culture Pelvic or flank pain; Glucose, Urine (Dipstick) Normal (Negative); Leukocyte Negative Leu/uL (Negative); Protein, Urine (Dipstick) Negative (Neg-Trace); RBC/HPF 0-3 HPF (0-3); Specific Gravity, Urine 1.014 (1.002-1.036); WBC/HPF 0-3 HPF (0-3)
[2025-04-23 11:20] LABS: Urine Culture Reflex No No
[2025-04-23] MEDS ORDERED: Iopamidol-370 76% 500 ML MDV (1 ML CHARGE) ONE (11:46)
[2025-04-23] MEDS ORDERED: VANCOMYCIN 2 GRAM/400 ML BAG ONE (12:28)
[2025-04-23] MEDS ORDERED: metroNIDAZOLE 500 MG (100 mL) BAG ONE (14:54)
[2025-04-23] MEDS ORDERED: Ondansetron PF 4 MG/2 ML Vial IVP PRN (16:27)
[2025-04-23] MEDS ORDERED: Calcium Carbonate 500 MG ChewTAB PO PRN (16:27)
[2025-04-24 05:26] LABS: #Basophils 0.05 10x3/uL (0.0-0.2); #Eosinophils 0.17 10x3/uL (0.0-0.7); #Monocytes 0.74 10x3/uL (0.11-0.59); #Neutrophils 6.34 10x3/uL (1.40-6.50); %Basophils 0.5 % (0.0-1.0); %Eosinophils 1.9 % (0.0-10.0); %Lymphocytes 19.5 % (21.0-51.0); %Monocytes 8.1 % (0.0-10.0); %Neutrophils 69.7 % (42.0-75.0); Hematocrit 41.4 % (42.0-52.0); Hemoglobin 13.0 g/dL (14.0-18.0); Mean Corpuscular Hemoglobin 26.4 pg (27.0-31.0); Mean Corpuscular Volume 84.0 fL (78.0-98.0); Platelet Count 347 10x3/uL (130-400); Red Blood Cell (RBC) Count 4.93 mill/uL (4.70-6.10); White Blood Cell (WBC) Count 9.11 10x3/uL (4.8-10.8)
[2025-04-24 05:44] LABS: ALT (SGPT) 12 U/L (Less than 45); AST (SGOT) 16 U/L (11-34); Albumin 3.2 g/dL (3.1-4.5); Alkaline Phosphatase 101 U/L (40-110); Anion Gap 12 mmol/L (10-20); BUN (Urea Nitrogen) 17 mg/dL (8.4-25.7); Bilirubin, Total 0.3 mg/dL (0.3-1.2); Calc. Creatinine Clearance 0 mL/min (70-130); Calcium 8.0 mg/dL (7.8-10.44); Carbon Dioxide 20 mmol/L (23-31); Chloride 114 mmol/L (98-107); Globulin 2.9 g/dL (2.4-3.5); Glucose 156 mg/dL (80-115); Potassium 3.9 mmol/L (3.5-5.1); Sodium 142 mmol/L (136-145)
[2025-04-24 12:43] VITALS: BMI 32.5
[2025-04-24] MEDS ORDERED: Benzonatate 100 MG CAP PO PRN (15:15)
[2025-04-24] MEDS: Acetaminophen 325 MG TAB PO PRN (15:24)
[2025-04-24] MEDS: risperiDONE 1 MG TAB PO SCH (22:24)
[2025-04-25] MEDS: metFORMIN 500 MG TAB PO SCH (09:13)
[2025-04-25] MEDS: Enoxaparin 40 MG (0.4 mL) SYRINGE SC SCH (09:13)
[2025-04-25] MEDS: Losartan 25 MG TAB PO SCH (09:13)
[2025-04-25 09:43] LABS: #Basophils 0.06 10x3/uL (0.0-0.2); #Eosinophils 0.34 10x3/uL (0.0-0.7); #Monocytes 0.52 10x3/uL (0.11-0.59); #Neutrophils 5.20 10x3/uL (1.40-6.50); %Basophils 0.8 % (0.0-1.0); %Eosinophils 4.5 % (0.0-10.0); %Lymphocytes 19.1 % (21.0-51.0); %Monocytes 6.8 % (0.0-10.0); %Neutrophils 68.4 % (42.0-75.0); Hematocrit 42.8 % (42.0-52.0); Hemoglobin 13.2 g/dL (14.0-18.0); Mean Corpuscular Hemoglobin 26.0 pg (27.0-31.0); Mean Corpuscular Volume 84.4 fL (78.0-98.0); Platelet Count 340 10x3/uL (130-400); Red Blood Cell (RBC) Count 5.07 mill/uL (4.70-6.10); White Blood Cell (WBC) Count 7.60 10x3/uL (4.8-10.8)
[2025-04-25] MEDS: Polyvinyl Alcohol 1.4%/Povidone 0.6% Opth Drops EA EYE SCH (12:15)
[2025-04-26 18:18] VITALS: BP 137/79; TEMP 98.2
== END 2025-04-26 18:21 | DRG 872 ==
LOC: ERS 08:59 → ERHOLD 15:53 → 2NO 20:24 → T4-A 04-25 17:32
PROVIDERS: ADMIT Student in an Organized Health Care Education/Training Program; ATTEND Hospitalist
DX: A41.9 Sepsis, unspecified organism (principal); N39.0 Urinary tract infection, site not specified; E87.20 Acidosis, unspecified; G81.11 Spastic hemiplegia affecting right dominant side; Z66 Do not resuscitate; E11.51 Type 2 diabetes mellitus with diabetic peripheral angiopathy without gangrene; N20.0 Calculus of kidney; Z91.013 Allergy to seafood; K21.9 Gastro-esophageal reflux disease without esophagitis; E78.00 Pure hypercholesterolemia, unspecified; I10 Essential (primary) hypertension; N28.1 Cyst of kidney, acquired; K80.20 Calculus of gallbladder without cholecystitis without obstruction; Z98.890 Other specified postprocedural states; Z79.84 Long term (current) use of oral hypoglycemic drugs; Z87.820 Personal history of traumatic brain injury; Z87.442 Personal history of urinary calculi; Z85.51 Personal history of malignant neoplasm of bladder; Z79.899 Other long term (current) drug therapy
CPT/HCPCS: 36415; 51701; 71045; 74177; 76705; 80053; 81001; 83605; 83690; 85025; 85610; 85730; 87040; 87086; 87149; 93005; 94760; 96365; 96366; 96367; J0692; J0696; J1650; J3375; J7120; Q9967